=== PATIENT | female | born 1980 | race Caucasian/White ===

== ENCOUNTER 2024-03-20 11:42 | Emergency (ER) | payer OTHER, SELFPAY ==
[2024-03-20 11:44] VITALS: BP 110/68; PULSE 92; RESP 18; TEMP 36.9; O2SAT 98; BMI 24.0
--- NOTE | 2024-03-20 11:53 | ED.NECK ---
HPI - Neck Pain/Injury General Time Seen by Provider: 11:53 Date Seen: 03/20/24 Chief Complaint: Neck Injury/Pain Stated Complaint: Stabbing pain back of neck Time Seen by Provider: 03/20/24 11:52 Source: patient and RN notes reviewed Mode of arrival: ambulatory Limitations: no limitations History of Present Illness HPI Narrative: Osmany is a 43-year-old female coming in with stabbing left neck pain that radiates into her head. With this she feels a generalized headache. There are no fevers chills or night sweats with this. There is no trauma, she has had no manipulation. She notes that this starts when she will go to lie down in bed, will worsened through the night. It usually improved after she has been up for a while in the morning. Today the pain is not going away. She did try some ibuprofen about an hour ago. Few days ago she had some prednisone in tizanidine left over from some generalized back pain that she had a few weeks ago. This really did not change her symptoms. Is a sharp stabbing pain. Pain is not radiating into her arms, there is no numbness tingling weakness or neurologic changes in her arms. She has a cold pack on, just started to try that today. She states she is on no chronic medications, no chance for . She has a history of congenital hip dislocation but otherwise denies any chronic medical issues. MD complaint: neck pain Related Data Previous Rx's ?Medication ?Instructions ?Recorded gabapentin 100 mg capsule 100 mg PO QHS PRN #30 caps 03/20/24 Allergies Allergy/AdvReac Type Severity Reaction Status Date / Time No Known Drug Allergies Allergy Verified 03/20/24 11:48 Review of Systems Status of ROS: Reports: 6 or more systems reviewed and unremarkable except as noted in History and below PFSH PFSH Social History Smoking Status: Never smoker How often do you have a drink containing alcohol: 2-3 times a week AUDIT-C Alcohol total score: 3 Non-prescribed substance use: denies use Exam Const: Vital Signs, click to edit/add: Vital Signs - 24 hr 03/20/24 11:44 Temperature 98.5 F Pulse Rate [Right Pulse Oximeter] 92 Respiratory Rate 18 Blood Pressure [Ri ght Upper Arm] 110/68 Pulse Oximetry 98 Oxygen Delivery Me thod Room Air This 43-year-old female who is lying in the bed in exam room 1 with a cold pack on the left side of her neck. She has the room dark. Pupils are equal round reactive to light sclera clear, extraocular muscles intact. Symmetrical facial function, speech normal. There is no midline tenderness of her neck the tenderness really seems to stem a little laterally from the base of the occiput in more where there was attachment of muscles. I feel no palpable mass. Range of motion is there but seems to increase her pain. She is able to sit up, lungs are clear, good air entry, no wheezing or crackles. CV regular rate and rhythm, no murmur, normal S1-S2, no S3-S4. Patient was ambulatory into the ED. She has 5/5 upper extremity strength through fingers up through shoulder muscles. Normal pulses, skin is normal and warm, normal cap refill. Normal rapid alternating finger movements. Documenting provider has reviewed patient's vital signs: yes Course Course ED Course: Will place an IV, we will do neuro imaging to rule out such things as dissection with angio of neck and head, head CT as well as cervical spine reconstruction. We did discuss possibilities that could be along the lines of dissection but certainly musculoskeletal issues are considered. I do wonder if this could be an occipital neuralgia. She has done some looking online. Will try 1 dose of IV Toradol, she understands if there is any dissection that that will be the only time will use this. We can work on pain management but we need to rule out some concerning entities such as the dissection. Reevaluation(s) Time of Reevaluation #1: 13:20 Reevaluation #1: Reviewed negative CT imaging with patient. We did go over the caveats that the CTA of her head and neck is a preliminary read. There is the potential that there could be some changes to the reading but doubtful that there will be any major changes. She is aware that her labs are normal. Did review with her that Christopher larose was on up-to-date in reviewing medicines. She would like to try gabapentin. She can continue with Tylenol 1000 mg 3 times a day scheduled and ibuprofen per bottle directions as needed. Try to position more upright in the meantime for sleep. She will need to follow up in clinic and if ongoing issues, referral to neurology. She does state that her headache is going on but she is still feeling the pain in the left occipital area. Vital Signs Vital signs: Initial Vital Signs Temperature 98.5 F 03/20/24 11:44 Temperature Source Temporal Artery Scan 03/20/24 11:44 Pulse Rate 92 03/20/24 11:44 Respiratory Rate 18 03/20/24 11:44 Blood Pressure 110/68 03/20/24 11:44 Blood Pressure Mean 82 03/20/24 11:44 Blood Pressure Position Sitting 03/20/24 11:44 Pulse Oximetry 98 03/20/24 11:44 Oxygen Delivery Method Room Air 03/20/24 11:44 Vital Signs Temperature 98.5 F 03/20/24 11:44 Pulse Rate 92 03/20/24 11:44 Respiratory Rate 18 03/20/24 11:44 Blood Pressure 110/68 03/20/24 11:44 Pulse Oximetry 98 03/20/24 11:44 Oxygen Delivery Method Room Air 03/20/24 11:44 Temperature 98.5 F 03/20/24 11:44 Pulse Rate 92 03/20/24 11:44 Respiratory Rate 18 03/20/24 11:44 Blood Pressure 110/68 03/20/24 11:44 Pulse Oximetry 98 03/20/24 11:44 Oxygen Delivery Method Room Air 03/20/24 11:44 Medications Administered Medications: Discontinued Medications Generic Name Dose Route Start Last Admin Trade Name Frewilliam PRN Reason Stop Dose Admin Ketorolac Tromethamine 15 mg 03/20/24 12:09 03/20/24 12:34 Ketorolac 15 Mg/Ml Inj IVP 03/20/24 12:10 15 mg ONCE ONE Administration MDM - Neck Pain/Injury Lab Data Attestation: I reviewed the patient's lab results. Labs: Lab Results 03/20/24 Range/Units 12:30 WBC 9.24 (4.50-11.00) K/uL RBC 4.33 (4.00-5.20) m/uL Hgb 13.3 (12.0-16.0) gm/dL Hct 39.5 (33.0-51.0) % MCV 91 (80-100) fL MCH 31 (26-34) pg MCHC 34 (32-36) gm/dL RDW Coeff of Vj 12.4 (11.5-15.5) % Plt Count 235 (140-440) K/uL Neut % (Auto) 61.5 (42.0-72.0) % Lymph % (Auto) 29.4 (20-44) % Gaston % (Auto) 6.9 (0.0-11.0) % Eos % (Auto) 1.5 (0.0-7.0) % Baso % (Auto) 0.6 (0.0-3.0) % Neut # (Auto) 5.67 (1.7-7.0) K/uL Lymph # (Auto) 2.72 (0.90-2.90) K/uL Gaston # (Auto) 0.60 (0.00-0.90) K/UL Eos # (Auto) 0.14 (0.00-0.50) K/uL Baso # (Auto) 0.06 (0.00-0.30) K/uL Abs Immat Gran (auto) 0.01 (0.00-0.30) K/uL Imm/Tot Granulo (auto) 0.1 % ESR 5 (2-20) mm/hr Sodium 139 (135-149) mmol/L Potassium 4.0 (3.6-5.1) mmol/L Chloride 107 (96-114) mmol/L Carbon Dioxide 24 (20-32) mmol/L Anion Gap 8 (7-15) mEq/L BUN 11 (5-24) mg/dL Creatinine 0.8 (0.5-1.5) mg/dL Estimated Creat Clear 79.91 Estimated GFR 95 ml/min Glucose 92 (60-115) mg/dL Lactate 1.3 (0.5-1.9) mmol/L Calcium 8.4 (8.4-10.6) mg/dL Total Bilirubin 0.8 (0.1-1.5) mg/dL AST 20 (12-35) U/L ALT 15 (4-35) U/L Alkaline Phosphatase 53 (40-150) U/L Total Creatine Kinase 48 (41-117) U/L C-Reactive Protein 1.4 H (0.5-1.0) mg/dL Total Protein 6.8 (6.0-8.3) g/dL Albumin 4.2 (3.3-5.0) g/dL Imaging Data CT scan - head: Attestation: I have reviewed the pertinent imaging results. Radiologist's impression: Patient: CHARLOTTE LEE Facility:?[facility] Patient ID:?[id number] Site Patient ID:?[id number]. Site :?1980 Study:?CT-Head WO-03/20/2024 1:03:32 PM Ordering Physician:Stewart Gimenez Final Report: INDICATION: Headache. TECHNIQUE: Non-contrast CT of the head is submitted. No comparisons. FINDINGS: The ventricles, sulci and gyri are of normal size, shape and contour. Midline structures are centrally located. No convincing evidence of intra- or extra-axial fluid collections. IMPRESSION: 1. No radiographic evidence of acute intracranial abnormalities. Please note that all CT scans at this facility use dose modulation, iterative reconstruction, and/or weight-based dosing when appropriate to reduce radiation dose to as low as reasonably achievable. Dictated by James Lama MD @ 03/20/2024 1:05:54 PM (Electronic Signature) CT cervical spine: Attestation: I have reviewed the pertinent imaging results. Radiologist's impression: Patient: CHARLOTTE LEE Facility:?[facility] Patient ID:?[id number] Site Patient ID:?[id number]. Site :?1980 Study:?CT-Spine Cervical WO-03/20/2024 1:04:30 PM Ordering Physician:?Jay Jay Gimenez Final Report: INDICATION: Neck pain TECHNIQUE: Non-contrast axial CT of the cervical spine with coronal and sagittal reconstructions. No comparisons. FINDINGS: The overall stature and alignment of the cervical spine is within normal limits. Prevertebral soft tissues, cervical airway, dens and lateral masses are within normal limits. No evidence of bony fragments narrowing the central canal or visualized neural foramina. IMPRESSION: No radiographic evidence of acute osseous injury. Please note that all CT scans at this facility use dose modulation, iterative reconstruction, and/or weight-based dosing when appropriate to reduce radiation dose to as low as reasonably achievable. Dictated by James Lama MD @ 03/20/2024 1:07:01 PM (Electronic Signature) CT angio head and neck: Attestation: I have reviewed the pertinent imaging results. Radiologist's impression: Patient: CHARLOTTE LEE Facility:?[facility] Patient ID:?[id number] Site Patient ID:?[id number]. Site :?1980 Study:?CT-Neck Angio Angio CTA HEAD AND NECK-03/20/2024 1:11:38 PM Ordering Physician:?Jay Jay Gimenez Preliminary Report: FINDINGS: The cervical arteries appear patent. No convincing evidence suspicious high-grade narrowing or prominent aneurysm formation. Dictated by James Lama MD @ 03/20/2024 1:13:38 PM Read by:?James Lmaa MD @03/20/2024 1:13:42 PM Discharge Plan Discharge Clinical Impression: Occipital pain Patient Disposition: Home, Self-Care Condition: Stable Instructions: Acute Headache (ED) Additional Instructions: Can try gabapentin at bedtime. Can also take Tylenol 1000 mg up to 3 times a day, supplement with ibuprofen per bottle directions. Please schedule clinic followup as soon as possible next week. You may need referral to Neurology if ongoing symptoms. I do think that this represents occipital neuralgia or headache disorder involving this area, Neurology will have to evaluate further for formal diagnosis. Activity Level: Activity as Tolerated Prescriptions: New gabapentin 100 mg capsule 100 mg PO QHS PRNQty: 30 0RF Rx Instructions: Start with 100 mg tonight, can read E does 1 tablet through the night if needed. You may increase an additional 100 mg every 2nd to 3rd day and tell your up to 600 mg at bedtime. I do not advise you to go over 600 mg at bedtime on less you have been directed or re-evaluated by a physician 1st. Follow Up/Referrals: Provider,Not a Local [Primary Care Provider] - Stand Alone Forms: [employer] Info Instructions
--- NOTE | 2024-03-20 12:03 | CRLHL7_ITS ---
For Patients: As a result of the Century Cures Act, medical imaging exams and procedure reports are released immediately into your electronic medical record. You may view this report before your referring provider. If you have questions, please contact your health care provider. INDICATION: Headache. TECHNIQUE: Non-contrast CT of the head is submitted. No comparisons. FINDINGS: The ventricles, sulci and gyri are of normal size, shape and contour. Midline structures are centrally located. No convincing evidence of intra- or extra-axial fluid collections. IMPRESSION: 1. No radiographic evidence of acute intracranial abnormalities. Please note that all CT scans at this facility use dose modulation, iterative reconstruction, and/or weight-based dosing when appropriate to reduce radiation dose to as low as reasonably achievable. Dictated by James Lama MD @ 03/20/2024 1:05:54 PM (Electronically Signed)
--- NOTE | 2024-03-20 12:03 | CRLHL7_ITS ---
For Patients: As a result of the Century Cures Act, medical imaging exams and procedure reports are released immediately into your electronic medical record. You may view this report before your referring provider. If you have questions, please contact your health care provider. DATE: 03/20/2024 CLINICAL HISTORY: Patient with headache. TECHNIQUE: Standard helical CT image acquisition through the intracranial circulation following intravenous administration of contrast material with bolus tracking. 2D and 3D MIP images for post-processing were performed and interpreted on an independent workstation and 3D images were permanently archived. COMPARISON: CT same day. FINDINGS: There is no cerebral aneurysm or large vessel occlusion. The right internal carotid artery is normal. The right middle cerebral artery and its branches are normal. The right anterior cerebral artery and its branches are normal. The left internal carotid artery is normal. The left middle cerebral artery and its branches are normal. The left anterior cerebral artery and its branches are normal. The anterior communicating artery is well visualized and appears normal. The right vertebral artery and PICA are normal. The left vertebral artery and PICA are normal. The left vertebral artery is dominant. The basilar artery is patent and appears normal. The right posterior cerebral artery is normal. The left posterior cerebral artery is normal. The visualized venous structures are patent. IMPRESSION: Patent proximal intracranial vasculature without intracranial aneurysms. Please note that all CT scans at this facility use dose modulation, iterative reconstruction, and/or weight-based dosing when appropriate to reduce radiation dose to as low as reasonably achievable. Dictated by Yennifer Smith MD @ 03/20/2024 1:39:26 PM (Electronically Signed)
--- NOTE | 2024-03-20 12:03 | CRLHL7_ITS ---
For Patients: As a result of the Century Cures Act, medical imaging exams and procedure reports are released immediately into your electronic medical record. You may view this report before your referring provider. If you have questions, please contact your health care provider. INDICATION: Neck pain TECHNIQUE: Non-contrast axial CT of the cervical spine with coronal and sagittal reconstructions. No comparisons. FINDINGS: The overall stature and alignment of the cervical spine is within normal limits. Prevertebral soft tissues, cervical airway, dens and lateral masses are within normal limits. No evidence of bony fragments narrowing the central canal or visualized neural foramina. IMPRESSION: No radiographic evidence of acute osseous injury. Please note that all CT scans at this facility use dose modulation, iterative reconstruction, and/or weight-based dosing when appropriate to reduce radiation dose to as low as reasonably achievable. Dictated by James Lama MD @ 03/20/2024 1:07:01 PM (Electronically Signed)
--- NOTE | 2024-03-20 12:03 | CRLHL7_ITS ---
For Patients: As a result of the Century Cures Act, medical imaging exams and procedure reports are released immediately into your electronic medical record. You may view this report before your referring provider. If you have questions, please contact your health care provider. DATE: 03/20/2024 CLINICAL HISTORY: Patient with left neck pain. TECHNIQUE: Standard helical CT image acquisition of the neck up to the skull base after bolus intravenous contrast enhancement. 2D and 3D MIP images for post-processing were performed and interpreted on an independent workstation and 3D images were permanently archived. COMPARISON: CT same day. FINDINGS: The origins of the great vessels from the aortic arch are patent. The origin of the right vertebral artery is patent. The origin of the left vertebral artery is patent. The common carotid arteries are patent. There is no stenosis at the origin of the right internal carotid artery. There is no stenosis at the origin of the left internal carotid artery. The rest of the cervical segments of the internal carotid arteries are patent up to the skull base, with mild narrowing of the right internal carotid artery caused by extrinsic compression from the right hyoid bone. The left vertebral artery is dominant. The cervical segments of the vertebral arteries are patent up to the skull base. The visualized lung apices are unremarkable. The thyroid gland is unremarkable. The soft tissues of the neck are unremarkable. There are degenerative changes in the cervical spine. IMPRESSION: Patent cervical vasculature. Please note that all CT scans at this facility use dose modulation, iterative reconstruction, and/or weight-based dosing when appropriate to reduce radiation dose to as low as reasonably achievable. Dictated by Yennifer Smith MD @ 03/20/2024 1:36:21 PM (Electronically Signed)
[2024-03-20] MEDS: KETOROLAC 15 MG/ML inj IVP (12:34)
[2024-03-20 12:36] LABS: Lactate* 1.3 mmol/L (0.5-1.9)
[2024-03-20 12:37] LABS: Basophils Absolute Auto 0.06 K/uL (0.00-0.30); Basophils Percent Auto 0.6 % (0.0-3.0); Eosinophils Absolute Auto 0.14 K/uL (0.00-0.50); Eosinophils Percent Auto 1.5 % (0.0-7.0); Hematocrit 39.5 % (33.0-51.0); Hemoglobin* 13.3 gm/dL (12.0-16.0); Immature Granulocytes Abs Auto 0.01 K/uL (0.00-0.30); Immature Granulocytes Pct Auto 0.1 %; Lymphocytes Absolute Auto 2.72 K/uL (0.90-2.90); Lymphocytes Percent Auto 29.4 % (20-44); Mean Corpuscular HGB Conc 34 gm/dL (32-36); Mean Corpuscular Hemoglobin 31 pg (26-34); Mean Corpuscular Volume 91 fL (80-100); Monocytes Percent Auto 6.9 % (0.0-11.0); Neutrophils Absolute Auto 5.67 K/uL (1.7-7.0); Neutrophils Percent Auto 61.5 % (42.0-72.0); Platelet Count* 235 K/uL (140-440); RDW Coefficient of Variation % 12.4 % (11.5-15.5); Red Blood Count 4.33 m/uL (4.00-5.20); White Blood Count* 9.24 K/uL (4.50-11.00)
[2024-03-20 12:39] LABS: Slide Review Reflex No
[2024-03-20 12:55] LABS: Albumin* 4.2 g/dL (3.3-5.0); Chloride* 107 mmol/L (96-114)
[2024-03-20 12:56] LABS: Sodium* 139 mmol/L (135-149)
[2024-03-20 12:58] LABS: Creatinine* 0.8 mg/dL (0.5-1.5); Est. Creatinine Clearance* 79.91; Estimated Glomerular Filt Rate 95 ml/min
[2024-03-20 12:59] LABS: Alanine Aminotransferase* 15 U/L (4-35); Alkaline Phosphatase* 53 U/L (40-150); Anion Gap 8 mEq/L (7-15); Aspartate Amino Transferase* 20 U/L (12-35); Bilirubin Total* 0.8 mg/dL (0.1-1.5); Blood Urea Nitrogen* 11 mg/dL (5-24); Calcium* 8.4 mg/dL (8.4-10.6); Carbon Dioxide* 24 mmol/L (20-32); Creatine Kinase* 48 U/L (41-117); Glucose* 92 mg/dL (60-115); Total Protein* 6.8 g/dL (6.0-8.3)
[2024-03-20 13:02] LABS: C Reactive Protein* 1.4 mg/dL (0.5-1.0)
[2024-03-20 13:05] VITALS: BP 104/61; PULSE 80; RESP 16; O2SAT 99
[2024-03-20 13:16] LABS: Erythrocyte SedimentationRate* 5 mm/hr (2-20)
== END 2024-03-20 13:48 | disposition home or self-care (01) ==
PROVIDERS: Emergency Provider Family Medicine
DX: M54.81 Occipital neuralgia (principal)
CPT/HCPCS: 36415; 70450; 70496; 70498; 72125; 80053; 82550; 83605; 85025; 85651; 86140; 96374; 99284; J1885; Q9967